=== PATIENT | female | born 1995 | race Caucasian/White ===

== ENCOUNTER → 2018-08-02 | Outpatient (CLI) | payer OTHER ==
--- NOTE | 2018-08-02 15:20 | RAD ---
EXAM: Pelvic sonogram. HISTORY: Irregular menses. TECHNIQUE: Transabdominal and transvaginal sonographic imaging of the pelvis was performed. COMPARISON: None. FINDINGS: The uterus measures 7.5 x 3.0 x 4.3 cm. The endometrial stripe measures 3.7 mm thickness. The ovaries are normal in size and demonstrate normal blood flow. There are small bilateral ovarian follicles. There is no pelvic free fluid. IMPRESSION: Unremarkable pelvic sonogram. Electronically signed by: Magalis Martin MD (08/02/2018 3:16 PM) [place] [id number]
== END | disposition home or self-care (01) ==
LOC: US 14:04
PROVIDERS: ATTEND Obstetrics & Gynecology
DX: N92.5 Other specified irregular menstruation (principal); E34.9 Endocrine disorder, unspecified
CPT/HCPCS: 76830; 76856